=== PATIENT | male | born 1990 | race Caucasian/White ===

== ENCOUNTER 2023-11-21 09:24 | Outpatient (AMB) | payer OTHER, SELFPAY ==
--- NOTE | 2023-11-21 09:17 | MHC.PC.OV ---
Vital Signs 11/21/23 09:41 Height 5 ft 10.87 in Weight 228 lb BMI 31.9 BP 136/72 Blood Pressure Location Rt brachial Position Sitting Respiration 14 Pulse 75 Pulse Source Pulse Oximeter Temp 98.2 F Temp Source Oral Pulse Oximetry (%) 95 Oxygen Delivery Method Room Air Intake Visit Reasons: Establish care Intake Note: New patient visit. Cardiology referral. Equity Research Analyst Required: No Allergies No Known Allergies Allergy (Verified 11/21/23 09:37) Medication List - Last Reconciled 11/21/23 by Stefany Lacey MD armodafinil 150 mg PO DAILY Tobacco use date assessed: 11/21/23 Dental Screening Dental Screen Date: 11/21/23 Did you have a dental visit in the last 12 months?: Yes Did you have a dental problem in the last 6 months where you did not have access to dental care?: No Was dental information given to patient?: Patient has dentist HPI HPI Comments History of Present Illness Details The patient is a 33 year old male with a past medical history of EDOUARD, bicuspid aortic valve, presenting to [facility]. Transferring from [facility] EDOUARD-On armodafinil. Follows with sleep medicine-pulmonology Dr Cisco Hager. He was having some palpitations with the medication so was switched to sunosi which was not as effective so he restarted the armodafinil. As long as he stays well hydrated he dose not get any palpitations Bicuspid aortic valve-Previously following with cardiology, wants referral. Says he is doing for echocardiogram. ROS CONSTITUTIONAL: Denies weight loss, fever and chills. HEENT: Denies changes in vision and hearing. RESPIRATORY: Denies SOB and cough. CV: Denies palpitations and CP GI: Denies abdominal pain, nausea, vomiting and diarrhea. : Denies dysuria and urinary frequency. MSK: Denies new myalgia and joint pain. SKIN: Denies rash and pruritus. NEUROLOGICAL: Denies headache PSYCHIATRIC: Denies recent changes in mood. PHYSICAL EXAM: GENERAL: Alert and oriented x 3. NAD EYES: EOMI. Anicteric. HENT: Moist mucous membranes. No scleral icterus. No cervical lymphadenopathy. LUNGS: Clear to auscultation bilaterally. CARDIOVASCULAR: Regular rate and rhythm. soft murmur ABDOMEN: Soft, non-tender +bs EXTREMITIES: No edema. Non-tender. SKIN: No rashes or lesions. Warm. NEUROLOGIC: No focal neurological deficits. PSYCHIATRIC: Cooperative. Appropriate mood and affect PFSH Family History (Updated 11/21/23 @ 09:40 by Meghna Doyle CMA) Father Substance use Social History (Updated 11/21/23 @ 09:39 by Meghna Doyle CMA) Housing: House Patient Tobacco Use Status: Never used Tobacco e-Cigarette/Vaping Use: Never Used Second Hand Smoke Exposure: Yes service: No Current occupational status: employed Current occupation: [employer] Current occupational exposures/hazards: Yes (fetanyl) Cognitive needs: No Hearing needs: No Vision needs: No Questionnaire PHQ-9 Over the last 2 weeks, how often have you been bothered by any of the following problems? 1. Little interest or pleasure in doing things: not at all 2. Feeling down, depressed, or hopeless: not at all 3. Trouble falling or staying asleep, or sleeping too much: more than half the days 4. Feeling tired or having little energy: several days 5. Poor appetite or overeating: not at all 6. Feeling bad about yourself - or that you are a failure or have let yourself or your family down: not at all 7. Trouble concentrating on things, such as reading the newspaper or watching television: not at all 8. Moving or speaking so slowly that other people could have noticed. Or the opposite - being so fidgety or restless that you have been moving around a lot more than usual: not at all 9. Thoughts that you would be better off or of hurting yourself in some way: not at all Total score: 3 Depression Screening Interpretation: Negative Depression Screening Done: Yes 35635 - PHQ-9 Billing: Yes Source: Developed by Drs. Felix Bess, Sophia De La Rosa, Carlos Cortez and colleagues, with an educational [place] from [employer]. AUDIT C Alcohol Use Questionnaire (AUDIT-C) 1. How often do you have a drink containing alcohol?: Monthly or less (few times a year) 2. How many drinks containing alcohol do you have on a typical day when you are drinking?: 1 or 2 3. How often do you have six or more drinks on one occasion?: Never Total Score: 1 Physical exam (Primary Care) Vital Signs: Last Vital Signs Temp 98.2 F 11/21/23 09:41 Pulse 75 11/21/23 09:41 Resp 14 11/21/23 09:41 BP 136/72 11/21/23 09:41 Pulse Ox 95 11/21/23 09:41 Oxygen Delivery Method Room Air 11/21/23 09:41 BMI result Body Mass Index 31.9 Depression Screening Interpretation: Negative Assessment and Plan Assessment & Plan (1) Bicuspid aortic valve: Code(s): Q23.1 - Congenital insufficiency of aortic valve Plan: Echo ordered (2) EDOUARD (obstructive sleep apnea): Code(s): G47.33 - Obstructive sleep apnea (adult) (pediatric) Plan: Continue follow up with pulmonary (3) Encounter to establish care: Comment: 33 year old to establish care. past medical, surgical, social and family history reviewed Code(s): Z76.89 - Persons encountering health services in other specified circumstances Orders: Orders CA echo transthoracic complete Today Q23.1 - Congenital insufficiency of aortic valve Referrals Cardiology Referral G47.33 - Obstructive sleep apnea (adult) (pediatric), Q23.1 - Congenital insufficiency of aortic valve Coding Level of Care Code Tele New Pt Level 4 (81268) Complex EM visit Add On G2211 Diagnoses Bicuspid aortic valve Q23.1 EDOUARD (obstructive sleep apnea) G47.33 Encounter to establish care Z76.89
[2023-11-21 09:41] VITALS: BP 136/72; PULSE 75; RESP 14; TEMP 36.8; O2SAT 95; BMI 31.9
== END 2023-11-21 10:00 | disposition home or self-care (01) ==
PROVIDERS: PCP Internal Medicine; Visit Provider Internal Medicine
DX: Q23.1 Congenital insufficiency of aortic valve (principal); G47.33 Obstructive sleep apnea (adult) (pediatric)
CPT/HCPCS: 99204

== ENCOUNTER → 2024-01-10 14:51 | Outpatient (REF) | payer OTHER, SELFPAY ==
--- NOTE | 2024-01-10 14:58 | CA_ITS ---
Transthoracic Echocardiogram Patient (Last, First, Middle): Brennan Aguirre T Gender: Male Date of : 1990 Age: 33 Procedure Date: 01/10/2024 Procedure Type: Transthoracic Echocardiogram Location: OP Height: 180.34 cm Weight: 99.79 kg BSA: 2.20 m2 Heart Rate: 68 bpm BP: 132 / 90 mmHg Machinist Brake: KELLY Referring MD: Stefany Lacey MD Symptoms: Q23.1 - Congenital insufficiency of aortic valve Study Quality: Adequate ECG Rhythm: Sinus Conclusions: - The left ventricular systolic function is normal. The visually estimated ejection fraction is between 55-60%. - Moderately increased right ventricular cavity size. - Aortic valve not well visualized. Obtain additional images to reassess. Findings Left Ventricle Normal left ventricular cavity size. There is mildly increased left ventricular wall thickness. The left ventricular systolic function is normal. The visually estimated ejection fraction is between 55-60%. There is no evidence of regional wall motion abnormalities. Diastolic function is normal for age. Right Ventricle Moderately increased right ventricular cavity size. There is normal right ventricular systolic function. Atria Both atria are normal in size. Aortic Valve The aortic valve was not well visualized. There is no aortic valve stenosis. There is trace (trivial) aortic valve regurgitation. Mitral Valve The mitral valve appears normal. There is trace mitral valve regurgitation. There is no mitral valve stenosis. Pulmonic Valve The pulmonic valve is likely normal. Tricuspid Valve Normal tricuspid valve structure. There is trace tricuspid valve regurgitation. There is no evidence of pulmonary hypertension. Great Vessels The asc aorta is normal in size. Venous The inferior vena cava is normal in size and collapses greater than 50% with inspiration. Pericardium/Pleural There is no evidence of pericardial effusion. Prior Study Comparison No prior study available for comparison. Measurements 2D Linear Measurements IVSd: 1.22 0.6-0.9/0.6-1.0 cm LVIDd: 5.15 3.9-5.3/4.2-5.9 cm LVIDd Index: 2.34 2.4-3.2/2.2-3.1 cm/m2 LVIDs: 3.65 2.0-3.6 cm LVPWd: 1.35 0.7-1.1 cm LA Diam: 3.40 2.7-3.8/3.0-4.0 cm LAIDs Index: 1.55 1.5-2.3 cm/m2 LV Mass: 336.45 67-162/88-224 g LV Mass Index: 152.93 43-95/49-115 g/m2 LVOT Diam: 2.70 3.0+(-)1.3 cm 2D Systolic Function EF 4C: 56.00 >55% EF 2C: 61.50 >55% EF BiP: 60.10 >55% Mitral Valve MV Pk E: 0.82 MV PK A: 0.40 MV Decel Time: 241.00 E/A: 2.10 E'Lateral: 14.40 E'Medial: 9.90 E/E' Med: 8.30 E/E' Lat: 5.70 PHT: 70.00 MVA PHT: 3.14 Decel [place]: 3.42 Aortic Valve AoV Pk Silvio: 1.27 AoV Mn Silvio: 0.96 AoV VTI: 0.25 AoV Pk Grad: 6.00 Aov Mn Grad: 4.00 GAVIN Cont.VTI: 3.90 LVOT LVOT Pk Silvio: 0.82 LVOT Mn Silvio: 0.57 LVOT VTI: 0.17 LVOT Pk Grad: 3.00 LVOT Mn Grad: 2.00 LVOT Diam: 2.70 LVOT Area: 5.73 Diastolic Function MV Pk E: 0.82 MV Pk A: 0.40 E/A: 2.10 E'Medial: 9.90 E/E' Med: 8.30 E' Laterial: 14.40 E/E' Lat: 5.70 Right Ventricle TAPSE (mm): 21.90 TVS' Silvio: 8.49 Tricuspid Valve TR Pk Silvio: 1.98 TR Pk Grad: 16.00 RA Press: 3.00 RVSP: 19.00 Great Vessels Aorta Sinus of Valsalva: 3.50 2.0-3.5 cm Ao Asc: 3.50 2.1-3.4 cm Pulmonary Valve PV Pk Silvio: 0.69 Peak PV Grad: 2.00 Updated in Other Vendor System with Status of Final Alvin Ellis MD electronically signed on 01/12/2024 11:48:52 AM with status of Final
--- NOTE | 2024-01-12 08:56 | CA_ITS ---
Transthoracic Echocardiogram Amended Patient (Last, First, Middle): Brennan Aguirre T Gender: Male Date of : 1990 Age: 33 Procedure Date: 01/12/2024 Procedure Type: Transthoracic Echocardiogram Location: OP Height: 180.34 cm Weight: 99.79 kg BSA: 2.20 m2 Heart Rate: 70 bpm BP: 132 / 85 mmHg Manufacturing Coordinator: KELLY Referring MD: Stefany Lacey MD Symptoms: Q23.1 - Congenital insufficiency of aortic valve Study Quality: Adequate, Limited by order ECG Rhythm: Sinus Findings Aortic Valve There is a bicuspid aortic valve. There is no aortic valve stenosis. There is trace (trivial) aortic valve regurgitation. Fusion of left and right cusps. Prior Study Comparison No significant change compared to prior study dated: 01/10/2024. (see report from 01/09 for full study) Measurements 2D Linear Measurements LVOT Diam: 2.40 3.0+(-)1.3 cm Aortic Valve AoV Pk Silvio: 1.34 AoV Mn Silvio: 0.96 AoV VTI: 0.26 AoV Pk Grad: 7.00 Aov Mn Grad: 4.00 GAVIN Cont.VTI: 3.13 LVOT LVOT Pk Silvio: 0.86 LVOT Mn Silvio: 0.62 LVOT VTI: 0.18 LVOT Pk Grad: 3.00 LVOT Mn Grad: 2.00 LVOT Diam: 2.40 LVOT Area: 4.52 Updated in Other Vendor System with Status of Final Alvin Ellis MD electronically signed on 01/12/2024 11:42:54 AM with status of Final
== END ==
LOC: HO.CARD 14:51
PROVIDERS: Visit Provider Internal Medicine
DX: Q23.1 Congenital insufficiency of aortic valve (principal)
CPT/HCPCS: 93306; 93308

== ENCOUNTER → 2024-01-10 14:58 | Outpatient (BNV) | payer OTHER, SELFPAY | PROVIDERS: Visit Provider Internal Medicine | DX: Q23.1 Congenital insufficiency of aortic valve (principal) | CPT/HCPCS: 93303; 93320; 93325 ==

== ENCOUNTER → 2024-01-12 08:52 | Outpatient (REF) | payer OTHER, SELFPAY | LOC: HO.CARD 08:52 | PROVIDERS: Visit Provider Internal Medicine | DX: Z13.89 Encounter for screening for other disorder (principal) ==

== ENCOUNTER → 2024-01-12 08:56 | Outpatient (BNV) | payer OTHER, SELFPAY | PROVIDERS: Visit Provider Internal Medicine | DX: Q23.1 Congenital insufficiency of aortic valve (principal) | CPT/HCPCS: 93304 ==

== ENCOUNTER 2024-01-27 09:07 | Outpatient (AMB) | payer OTHER, SELFPAY ==
--- NOTE | 2024-01-27 09:12 | A.OFFPC_ITS ---
Intake Visit Reasons: F/U echocardiogram-Change to telehealth Requested Allergies No Known Allergies Allergy (Verified 11/21/23 09:37) Tobacco use date assessed: 11/21/23 Dental Screening Dental Screen Date: 11/21/23 HPI HPI Comments History of Present Illness Details The patient is a 33 year old male with a past medical history of EDOUARD, bicuspid aortic valve, presenting for follow up EDOUARD-On armodafinil. Follows with sleep medicine-pulmonology Dr Cisco Hager. He was having some palpitations with the medication so was switched to sunosi which was not as effective so he restarted the armodafinil. As long as he stays well hydrated he dose not get any palpitations Bicuspid aortic valve-Previously following with cardiology. Echocardiogram was ordered at his last visit and reviewed today-there was no significant interval changes, no significant valve dysfunction. ROS see HPI PHYSICAL EXAM: Telehealth [facility] Family History (Updated 11/21/23 @ 09:40 by Meghna Doyle CMA) Father Substance use Social History (Updated 11/21/23 @ 09:39 by Meghna Doyle CMA) Housing: House Patient Tobacco Use Status: Never used Tobacco e-Cigarette/Vaping Use: Never Used Second Hand Smoke Exposure: Yes service: No Current occupational status: employed Current occupation: [employer] Current occupational exposures/hazards: Yes (fetanyl) Cognitive needs: No Hearing needs: No Vision needs: No Physical exam (Primary Care) Tobacco/Smoking Status: Tobacco use Status Tobacco use date assessed 11/21/23 01/27/24 09:12 Patient Tobacco Use Status Never used Tobacco 01/27/24 09:12 e-Cigarette/Vaping Use Never Used 01/27/24 09:12 Telehealth Telehealth Telehealth Platform: Telephone Location of provider rendering services: practice address Location of patient: address on file Patient Identification confirmed using: Name, : Yes Telehealth method: voice only Patient verbally consented to treatment: Yes Patient verbally consented to billing insurance company: Yes Patient informed of any privacy concerns related to visit: Yes Minutes spent on Phone/Video with Pt.: 12 Assessment and Plan Assessment & Plan (1) Bicuspid aortic valve: Code(s): Q23.1 - Congenital insufficiency of aortic valve Plan: Echocardiogram reviewed with patient. Questions answered. Follow up echo 3-5 years. Coding Level of Care Code Tele Est Pt Level 2 (35593) Diagnoses Bicuspid aortic valve Q23.1
== END 2024-01-27 09:27 | disposition home or self-care (01) ==
LOC: HO.HMGFM 09:07
PROVIDERS: PCP Internal Medicine; Visit Provider Internal Medicine
DX: Q23.1 Congenital insufficiency of aortic valve (principal)
CPT/HCPCS: 99442

== ENCOUNTER 2024-10-18 12:35 | Outpatient (AMB) | payer OTHER, SELFPAY ==
--- OUTSIDE RECORDS SUMMARY | 2024-10-18 12:38 | XMS_ITS | Clinical Summary ---
Author Organization [facility] Address [address] [place] [address] Care Team Providers Care Bilingual Middle School Teacher Name Role Phone Pcp, No MD Primary Care Provider Unavailabl e Allergies Active Allergy Reactions Criticality Noted Date Comments Mold 06/09/2020 Medications No known medications Social History Tobacco Use Types Packs/Day Years Used Date Smoking Tobacco: Never Smokeless Tobacco: Never Alcohol Use Standard Drinks/Week Comments Never 0 (1 standard drink = 0.6 oz pur e alcohol) Sex and Gender Information Value Date Recorded Sex Assigned at Not on file Legal Sex Male 11:14 AM EST Gender Identity Not on file Sexual Orientation Not on file Last Filed Vital Signs Vital Sign Reading Time Taken Comments Blood Pressure 159/75 07/14/2020 4:11 PM EST Pulse 87 07/14/2020 4:40 PM EST Temperature 36.2 ??C (97.1 ??F) 08/18/2021 4:17 PM ED T Respiratory Rate 16 07/14/2020 4:11 PM EST Oxygen Saturation 95% 07/14/2020 4:40 PM EST Inhaled Oxygen Concentration - - Weight 95.3 kg (210 lb) 10/30/2020 8:24 AM EDT Height 180.3 cm (5' 11 ) 10/30/2020 8:24 AM EDT Body Mass Index 29.29 10/30/2020 8:24 AM EDT Plan of Treatment Health Maintenance Due Date Last Done Comments HIV Screening 1990 DTaP,Tdap,and Td Vaccines (1 - Tdap) 2009 Hepatitis B Vaccines (1 of 3 - 19+ 3-dose series) 2010 COVID-19 Vaccine (2023-2 5 season) 2024 Influenza Vaccine (Season Ended) 2025 Zoster Vaccines (1 of 2) 2041 HPV Vaccines Aged Out No longer eligi ble based on patient's age to complete this topic Hepatitis A Vaccines Aged Out No long er eligible based on patient's age to complete this topic MMR Vaccines Aged Out No longer eligi ble based on patient's age to complete this topic Meningococcal Vaccine Aged Out No frankie ania eligible based on patient's age to complete this topic Pneumococcal Vaccine: Pediat rics (0 to 5 Years) and At-Risk Patients (6 to 49 Years) Aged Out No longer eligible b ased on patient's age to complete this topic Medical Devices Implanted Type Area Air Dispatcher Device Identifier Shelf Expiration Date Model / Serial / Lot 18cm X 100mm Fascia Violeta, Large, Soft Tissue, Frozen - [id number] Implanted:Qty: 1 on 06/09/2020 by Adrian Eugene MD PhD at [facility] Soft Tissue Right: Chest [employer] 07/01/2024 [id number] / / [id number] 12mm Bicepsbutton - [id number] Implanted:Qty: 2 on 06/09/2020 by Adrian Eugene MD PhD at [facility] Surgical Fixation Device Right: Chest [employer] 01/27/2025 AR-2261 / / [id number] 12mm Bicepsbutton - [id number] Implanted:Qty: 1 on 06/09/2020 by Adrian Eugene MD PhD at [facility] Surgical Fixation Device Right: Chest [employer] 12/27/2024 AR-2261 / / [id number] 12mm Bicepsbutton - [id number] Implanted:Qty: 1 on 07/14/2020 by Adrian Eugene MD PhD at [facility] Surgical Fixation Device [employer] 01/27/2025 AR-2261 / / [id number] 12mm Bicepsbutton - [id number] Implanted:Qty: 2 on 07/14/2020 by Adrian Eugene MD PhD at [facility] Surgical Fixation Device [employer] 02/26/2025 AR-2261 / / [id number] Insurance [facility] Address: [address] [place] [address] Advance Directives For more information, please contact: [phone] Documents on File Type Date Recorded Patient Fish Drier Expl anation Advance Directives 07/16/2020 10:31 AM Care Teams Bilingual Middle School Teacher Relationship Specialty Start Date End Date Lyudmila Garcia MD [address] [id number] PCP - General Internal Medicine 06/04/20
--- OUTSIDE RECORDS SUMMARY | 2024-10-18 12:38 | XMS_ITS | Clinical Summary ---
Author Organization [facility] Address [address] [place] [address] Care Team Providers Care Chemical Process Analyst Name Role Phone Francesco Mensah MD Primary Care Provider Allergies No known active allergies Medications Medication Sig Dispensed Refills Start Date End Date Status Armodafinil 150 MG tablet TAKE 1 TABLET BY MOUTH EVERY DAY 30 tablet 2 04/18/2023 Active solriamfetol (Sunosi) 75 MG tablet Take 1 tablet (75 mg total) by mouth daily. 30 tablet 3 11/09/2023 Active Active Problems Problem Noted Date Diagnosed Date Daytime somnolence 01/19/2023 Chest pain 03/11/2022 Allergic rhinitis due to pollen 09/04/2020 Bronchitis 09/04/2020 Otalgia 09/04/2020 Cough 09/04/2020 Sore throat 09/04/2020 Social History Tobacco Use Types Packs/Day Years Used Date Smoking Tobacco: Never Passive Smoke Exposure: Never Smokeless Tobacco: Never Tobacco Cessation:Counseling Given: Yes Alcohol Use Standard Drinks/Week Comments Yes 0 (1 standard drink = 0.6 oz pur e alcohol) socially Sex and Gender Information Value Date Recorded Sex Assigned at Male 05/22/2020 2:49 PM EST Gender Identity Male 05/22/2020 2:49 PM EST Sexual Orientation Not on file Job Start Date Occupation Industry Not on file Not on file Not on file Last Filed Vital Signs Vital Sign Reading Time Taken Comments Blood Pressure 124/72 02/23/2023 12:41 PM EDT Pulse 108 02/23/2023 12:41 PM EDT Temperature 36.4 ??C (97.5 ??F) 03/12/2022 8:09 AM ED T Respiratory Rate 16 02/23/2023 12:41 PM EDT Oxygen Saturation 98% 02/23/2023 12:41 PM EDT Inhaled Oxygen Concentration - - Weight 97.5 kg (215 lb) 02/23/2023 12:41 PM EDT Height 180.3 cm (5' 11 ) 02/23/2023 12:41 PM EDT Body Mass Index 29.99 02/23/2023 12:41 PM EDT Plan of Treatment Health Maintenance Due Date Last Done Comments Hepatitis B Vaccines (1 of 3 - 3-dose series) 1990 Hepatitis C Screening 1990 COVID-19 Vaccine (#1) 01/01/1992 Depression Screening 2003 Preventative Health Evaluation 2009 BMI Counseling 08/25/2023 08/24/2022 Influenza Vaccine (#1) 2024 DTap / Tdap / Td (2 - Td or Tdap) 02/21/2033 023 Pneumococcal Vaccine Aged Out No long er eligible based on patient's age to complete this topic RSV Ped < 20 months Aged Out No longe r eligible based on patient's age to complete this topic Advance Directives For more information, please contact: [phone] Latest Code Status on File Code Status Date Activated Date Inactivated Comments Full Code 03/11/2022 4:40 PM 03/12/2022 8:27 PM Thi s code status was ascertained in the following way: TBD . Care Teams Chemical Process Analyst Relationship Specialty Start Date End Date Francesco Mensah MD [address] [place] [address] PCP - General Cardiovascular Disease 03/11/22
--- OUTSIDE RECORDS SUMMARY | 2024-10-18 12:38 | XMS_ITS | Clinical Summary ---
Author Organization [facility] Address [address] [place] [id number] Care Team Providers Care Shift Stacker Name Role Phone Unavailable Primary Care Provider Unavailabl e Immunizations Immunization Administration Dates Next Due Tdap 02/21/2023 Social History Tobacco Use Types Packs/Day Years Used Date Smoking Tobacco: Never Assessed Comments Unknown Sex and Gender Information Value Date Recorded Sex Assigned at Choose not to disclose 9:58 AM EDT Legal Sex Male 12:25 PM EDT Gender Identity Male 02/21/2023 9:58 AM EDT Sexual Orientation Choose not to disclose 2022 9:58 AM EDT Plan of Treatment Health Maintenance Due Date Last Done Comments Hepatitis C Virus Screening 1990 HIV Screening 2004 Hepatitis B Vaccines (1 of 3 - 19+ 3-dose series) 2010 Pap Smear (Ages 21-65) 2012 COVID-19 Vaccine ( - season) 2024 Influenza Vaccine 12/28/2024 03/08/2008, , 03/23/2006, Additional history exists DTaP/Tdap/Td Vaccines (2 - Td or Tdap) 02/21/2033 02/21/2023 HPV Vaccines Aged Out No longer eligi ble based on patient's age to complete this topic Pneumococcal Vaccine: Pediatric (0-5 Years) and At-Risk Patients (6 to 49 Years) Aged Out No longer eligible based on patient's age to complete this topic Insurance [facility]
--- OUTSIDE RECORDS SUMMARY | 2024-10-18 12:38 | XMS_ITS ---
Author Name [facility] Organization Unknown Problems Problem Status Onset Date Problem Type Date of Resoluti on Source Vaccine for diphtheria-tetanus active EncounterDiagnosisAct CCT Immunizations Vaccine Date Source Lot Number Status [id number] Encounters Encounter Type Encounter Reason Primary Diagnosis Location Date Ambulatory [facility] 02/21[facility]2023 Ambulatory Strain of muscle and tendon of front wall of thorax, subsequent encounter [facility] 08/18/2021 Ambulatory Strain of muscle and tendon of front wall of thorax, subsequent encounter [facility] 07/14/2021 Ambulatory Strain of muscle and tendon of front wall of thorax, subsequent encounter [facility] 07/14/2021 Ambulatory Strain of muscle and tendon of front wall of thorax, subsequent encounter [facility] 07/14/2021 Care Team Organization Name Specialty Phone Email Start Date End [employer] te [employer] 09/23/2023 [facility] Louise Prasad Primary [facility] 02/21/2023 02/24/20 [facility] ROSA ISELA RAE Primary Care 02/21/2023 02/24/2024 [facility] Teddy Rae Primary Care 02/21/2023 [facility] PCP,No Primary Care 08/18/2021 [facility] NO PCP Primary Care 07/14/2021
--- OUTSIDE RECORDS SUMMARY | 2024-10-18 12:38 | XMS_ITS | Encounter Summary ---
Author Organization [facility] Address [address] [place] [address] Care Team Providers Care Champagne Maker Name Role Phone Louise Prasad APRN Primary Care Provider [phone] Encounter Details Date Type Department Care Team (Late st Contact Info) Description 02/23/2023 Scanned Document [facility] Department of Pediatrics [address] [id number] Louise [facility]asad APRN [facility] [address] [place] [address] Social History Tobacco Use Types Packs/Day Years Used Date Smoking Tobacco: Never Assessed Comments Unknown Sex and Gender Information Value Date Recorded Sex Assigned at Choose not to disclose 9:58 AM EDT Legal Sex Male 12:25 PM EDT Gender Identity Male 02/21/2023 9:58 AM EDT Sexual Orientation Choose not to disclose 2022 9:58 AM EDT documented as of this encounter Plan of Treatment Not on file documented as of this encounter Visit Diagnoses Not on filedocumented in this encounter Care Teams Champagne Maker Relationship Specialty Start Date End Date Louise Prasad APRN PCP - General Internal Medicine 02/21/23 10/02/23 documented as of this encounter
--- OUTSIDE RECORDS SUMMARY | 2024-10-18 12:38 | XMS_ITS | Clinical Summary ---
Author Organization [facility] Address [address] [place] [address] Phone Care Team Providers Care Waterway Traffic Checker Name Role Phone Francesco Mensah MD Primary Care Provider Allergies No known active allergies Medications armodafiniL (NUVIGIL) 150 mg tablet Take 1 tablet (150 mg total) by mouth 1 (one) time each day. Max Daily Amount: 150 mg 04/18/2023 Active Sunosi 75 mg tablet TAKE 1 TABLET BY MOUTH EVERY DAY 30 tablet 3 04/18/2024 Active Active Problems Problem Noted Date Diagnosed Date Daytime somnolence 01/19/2023 Chest pain 03/11/2022 Allergic rhinitis due to pollen 09/04/2020 Bronchitis 09/04/2020 Cough 09/04/2020 Otalgia 09/04/2020 Sore throat 09/04/2020 Medical History Medical History Date Comments History of repair of anterio r cruciate ligament DX:History of repair of ante rior cruciate ligament History of shoulder surgery DX:H istory of shoulder surgery Social History Tobacco Use Types Packs/Day Years Used Date Smoking Tobacco: Never Smokeless Tobacco: Never Alcohol Use Standard Drinks/Week Comments Yes 0 (1 standard drink = 0.6 oz pur e alcohol) Sex and Gender Information Value Date Recorded Sex Assigned at Not on file Legal Sex Male 3:43 AM EST Gender Identity Not on file Sexual Orientation Not on file Obstetrics History Last Filed Vital Signs Vital Sign Reading Time Taken Comments Blood Pressure 124/72 02/23/2023 12:41 PM EDT Pulse 108 02/23/2023 12:41 PM EDT Temperature - - Respiratory Rate - - Oxygen Saturation - - Inhaled Oxygen Concentration - - Weight 97.5 kg (215 lb) 02/23/2023 12:41 PM EDT Height 180.3 cm (5' 11 ) 02/23/2023 12:41 PM EDT Body Mass Index 29.99 02/23/2023 12:41 PM EDT Plan of Treatment Health Maintenance Due Date Last Done Comments DTaP,Tdap,and Td Vaccines (1 - Tdap) 2010 Hepatitis B Vaccines (1 of 3 - 19+ 3-dose series) 2010 Depression Screening 05/02/2022 HIV Screening 05/02/2022 Hepatitis C Screening 05/02/2022 Social Influencers of Health Screening 05/02/2022 COVID-19 Vaccine (1 - 2023-2 5 season) 2024 Influenza Vaccine (Season Ended) 2025 HIB Vaccines Aged Out No longer eligi ble based on patient's age to complete this topic HPV Vaccines Aged Out No longer eligi ble based on patient's age to complete this topic Hepatitis A Vaccines Aged Out No long er eligible based on patient's age to complete this topic IPV Vaccines Aged Out No longer eligi ble based on patient's age to complete this topic MMR Vaccines Aged Out No longer eligi ble based on patient's age to complete this topic Meningococcal ACWY Vaccine Aged Out N o longer eligible based on patient's age to complete this topic Meningococcal B Vaccine Aged Out No l onger eligible based on patient's age to complete this topic Pneumococcal Vaccine: Pediat rics (0 to 5 Years) and At-Risk Patients (6 to 64 Years) Aged Out No longer eligible b ased on patient's age to complete this topic RSV Immunization Patients Un leland 20 months Aged Out No longer eligible b ased on patient's age to complete this topic Varicella Vaccines Aged Out No longer eligible based on patient's age to complete this topic Care Teams Waterway Traffic Checker Relationship Specialty Start Date End Date Francesco Mensah MD [address] [facility] [address] [place] [address] PCP - General 03/11/22
--- OUTSIDE RECORDS SUMMARY | 2024-10-18 12:38 | XMS_ITS | Encounter Summary ---
Author Organization [facility] Address [address] [place] [address] Care Team Providers Care Fur Dressing Supervisor Name Role Phone Louise Prasad APRN Primary Care Provider [phone] Encounter Details Date Type Department Care Team (Late st Contact Info) Description 02/21/2023 Scanned Document Gustavo Alarcon Department of Internal Medicine [address] [place] [id number] Nika Lazaro APRN [address] [place] [address] Social History Tobacco Use Types Packs/Day Years [...] on filedocumented in this encounter Care Teams Fur Dressing Supervisor Relationship Specialty Start Date End Date Louise Prasad APRN PCP - General Internal Medicine 02/21/23 10/02/23 documented as of this encounter
--- OUTSIDE RECORDS SUMMARY | 2024-10-18 12:38 | XMS_ITS | Clinical Summary ---
Author Organization [facility] Address [address] [place] [address] Care Team Providers Care Electric Crane Operator Name Role Phone Gaby Tong Primary Care Provider Unavailabl e Medications Armodafinil (NUVIGIL) 150 MG tablet TAKE 1 TABLET BY MOUTH EVERY DAY 30 0 01/18/2023 Active Armodafinil (NUVIGIL) 150 MG tablet TAKE 1 TABLET BY MOUTH EVERY DAY 30 0 01/18/2023 Active Armodafinil (NUVIGIL) 150 MG tablet TAKE 1 TABLET BY MOUTH EVERY DAY 30 0 01/18/2023 Active Solriamfetol HCl (Sunosi) 75 MG Tab 30 0 04/13/2023 Active Solriamfetol HCl (Sunosi) 75 MG Tab 30 0 04/13/2023 Active Solriamfetol HCl (Sunosi) 75 MG Tab 30 0 04/13/2023 Active Active Problems Problem Noted Date Diagnosed Date Abnormal electrocardiogram 03/21/2018 Overview (2023): Impression - [id number]: asymptomatic currently. referral to cardiology, will likely will need echo for further eval. could be r/t athletic lifestyle or hx of congenital heart defect. Congenital heart defect 03/21/2018 Family History Medical History Relation Name Comments Congenital heart dz Father congenit al heart disease : Father Relation Name Status Comments Father Social History Tobacco Use Types Packs/Day Years Used Date Smoking Tobacco: Never Assessed Comments:Smoking Status:No c urrent tobacco use Sex and Gender Information Value Date Recorded Sex Assigned at Not on file Legal Sex Male 9:51 PM EDT Gender Identity Not on file Sexual Orientation Not on file Last Filed Vital Signs Vital Sign Reading Time Taken Comments Blood Pressure 98/60 03/21/2018 2:22 PM EDT Pulse 64 03/21/2018 2:22 PM EDT Temperature 36.8 ??C (98.2 ??F) 03/21/2018 2:22 PM ED T Respiratory Rate 16 03/21/2018 2:22 PM EDT Oxygen Saturation 99% 03/10/2018 6:12 PM EDT Inhaled Oxygen Concentration - - Weight 97.1 kg (214 lb) 03/21/2018 2:22 PM EDT Height 177.8 cm (5' 10 ) 03/21/2018 2:22 PM EDT Body Mass Index 30.71 03/21/2018 2:22 PM EDT Plan of Treatment Health Maintenance Due Date Last Done Comments Hepatitis C Screening 1991 DTaP/Tdap/Td (1 - Tdap) 2009 Hep B (1 of 3 - 19+ 3-dose series) 2010 COVID-19 Vaccine ( - 2023-2 5 season) 2024 Influenza (#1) 2024 Zoster (Shingrix) (1 of 2) 2041 HPV Vaccine Aged Out No longer eligi ble based on patient's age to complete this topic Hep A Aged Out No longer eligi ble based on patient's age to complete this topic Hib Aged Out No longer eligi ble based on patient's age to complete this topic Meningococcal ACWY Aged Out No longer eligible based on patient's age to complete this topic Pneumococcal Aged Out No longer eligi ble based on patient's age to complete this topic Care Teams Electric Crane Operator Relationship Specialty Start Date End Date Gaby Tong PCP - General 01/03/23
--- NOTE | 2024-10-18 12:56 | A.OFFPC_ITS ---
Vital Signs 10/18/24 13:00 10/18/24 13:16 10/18/24 13:17 10/18/24 13:18 Height 5 ft 10.87 in Weight 229 lb 8 oz BMI 32.1 BP 138/81 144/72 H 150/75 H 151/77 H Blood Pressure Location Lt brachial Lt brachial Lt brachial Lt brachial Position Sitting Supine Sitting Standing Respiration 14 Pulse 80 76 79 87 Pulse Source Pulse Oximeter Pulse Oximeter Pulse Oximeter Pulse Oximeter Pulse Oximetry (%) 97 Oxygen Delivery Method Room Air Intake Visit Reasons: Heart condition Intake Note: Has a bicuspid aortic valve issue. Elevated bp. Lightheaded for about 6 months. Event Specialist Product Demonstrator Required: No Allergies No Known Allergies Allergy (Verified 10/18/24 12:57) Medication List - Last Reconciled 10/18/24 by Claire Jung PA-C armodafinil 150 mg PO DAILY Tobacco use date assessed: 11/21/23 Dental Screening Dental Screen Date: 11/21/23 HPI Heart condition HPI Details Patient is a 34-year-old male with a significant past medical history of bipolar custody aortic valve, obstructive sleep apnea presenting today with an acute problem visit. He states that for the last 4 or 5 months he has felt lightheaded/off balance. He states it happens multiple times a week if not every day. He states it is very short lasting but when he is doing some of the he just feels a little off balance. . He is trying to correlated to something such as food or blood pressure. He states that for the last 6 months he has noticed that his blood pressure has been elevated consistently. When he was seen here last year it was also 138/72. He states that it has been elevated with a systolic around 130-160 and diastolic from 70 to 90. He states when he is feeling lightheaded he does not have any chest pain, shortness on breath or palpitations. No diaphoresis or nausea. No headaches or vision changes. No numbness, tingling or weakness. No sinus pain or pressure, sore throat, ear pain or congestion. The dizziness makes him just stop whatever he is doing. It does not seem to matter if he is moving or sitting there. He has not checked his blood sugars but has never had an issue with his blood sugar. He is very consistent with his CPAP machine. He is concerned about his heart given that he has a bicuspid aortic valve. He does have a family history of hypertension. He states years ago he was told that he had protein in his urine as well and they thought it was just related to his diet. He never saw a mitochondrial disorders counselor. PFSH Family History (Updated 11/21/23 @ 09:40 by Meghna Doyle CMA) Father Substance use Social History (Updated 11/21/23 @ 09:39 by Meghna Doyle CMA) Housing: House Patient Tobacco Use Status: Never used Tobacco e-Cigarette/Vaping Use: Never Used Second Hand Smoke Exposure: Yes service: No Current occupational status: employed Current occupation: [employer] Current occupational exposures/hazards: Yes (fetanyl) Cognitive needs: No Hearing needs: No Vision needs: No Questionnaire PHQ-9 Over the last 2 weeks, how often have you been bothered by any of the following problems? 1. Little interest or pleasure in doing things: several days 2. Feeling down, depressed, or hopeless: not at all 3. Trouble falling or staying asleep, or sleeping too much: not at all 4. Feeling tired or having little energy: several days 5. Poor appetite or overeating: not at all 6. Feeling bad about yourself - or that you are a failure or have let yourself or your family down: not at all 7. Trouble concentrating on things, such as reading the newspaper or watching television: not at all 8. Moving or speaking so slowly that other people could have noticed. Or the opposite - being so fidgety or restless that you have been moving around a lot more than usual: not at all 9. Thoughts that you would be better off or of hurting yourself in some way: not at all Total score: 2 Depression Screening Interpretation: Negative Depression Screening Done: Yes 99260 - PHQ-9 Billing: Yes Source: Developed by Drs. Felix Bess, Sophia De La Rosa, Carlos Cortez and colleagues, with an educational india from [employer]. Thrive Questionnaire Date Thrive assessed: 10/18/24 I am a: Patient What is your living situation today?: I have a steady place to live Within the past 12 months, did the food you bought not last and you didn't have the money to get more?: Sometimes True Within the past 12 months, did you worry whether your food would run out before you got money to buy more?: Sometimes True Do you have trouble paying for medicines?: No Do you have trouble getting transportation to medical appointments?: No Do you have trouble paying your heating and electricity bill?: No Do you have trouble taking care of your child, family member or friend?: No Do you have trouble with day-to-day activities such as bathing, preparing meals, shopping, managing finances, etc.?: No Are you currently unemployed and looking for a job?: No Are you interested in more education?: Yes Please select the resources that you would like help with: None Currently or been in a relationship where the following occur: No concerns reported THRIVE Score: 2 AUDIT C Alcohol Use Questionnaire (AUDIT-C) 1. How often do you have a drink containing alcohol?: Never 2. How many drinks containing alcohol do you have on a typical day when you are drinking?: 1 or 2 3. How often do you have six or more drinks on one occasion?: Never Total Score: 0 JAZMYN-7 AMB Questionnaire JAZMYN-7 Feeling nervous, anxious, or on edge: 0 = Not at all Not being able to stop or control worryin = Not at all Worrying too much about different things: 1 = Several days Trouble relaxin = Several days Being so restless that it is hard to sit still: 0 = Not at all Becoming easily annoyed or irritable: 0 = Not at all Feeling afraid as if something awful might happen: 0 = Not at all Total JAZMYN-7 score (0-4 normal; 5-9 mild; 10-14 moderate; 15-21 severe): 2 Source: Developed by Drs. Felix Bess, Sophia De La Rosa, Carlos Cortez and colleagues, with an educational india from [employer]. JAZMYN-7 Assessment Billing JAZMYN-7 Assessment Tool: JAZMYN-7 Assessment 13091 Physical exam (Primary Care) Vital Signs: Last Vital Signs Pulse 80 10/18/24 13:00 Resp 14 10/18/24 13:00 BP 138/81 10/18/24 13:00 Pulse Ox 97 10/18/24 13:00 Oxygen Delivery Method Room Air 10/18/24 13:00 BMI result Body Mass Index 32.1 Tobacco/Smoking Status: Tobacco use Status Tobacco use date assessed 11/21/23 10/18/24 12:57 Patient Tobacco Use Status Never used Tobacco 10/18/24 12:57 e-Cigarette/Vaping Use Never Used 10/18/24 12:57 PHQ-9: PHQ-9 Score PHQ-9: Total score 2 10/18/24 12:57 Depression Screening Interpretation: Negative Thrive Assessment: Date of Thrive Assessment Date Thrive assessed 10/18/24 10/18/24 12:57 Currently or been in a relationship where the following occur: No concerns reported Const Orientation/consciousness: patient oriented x3 HENMT Ears: hearing grossly normal bilaterally Neck Thyroid: Thyroid normal Lymphatic: no lymphadenopathy noted Resp Auscultation: clear to auscultation bilaterally Cardio Rate: regular rate Rhythm: regular rhythm Heart sounds: S1 normal heart sound present and S2 normal heart sound present GI Inspection: Yes normal to inspection Palpation (GI): Soft to palpation and Other GI palpation findings present (nontender, no cva tenderness) Auscultation: normoactive bowel sounds Rectal Exam - Male: Yes deferred Skin General skin exam: no rashes or lesions noted Neuro General: patient oriented x3, gait normal, no focal motor deficits, CN's II-XI intact bilaterally and deep tendon reflexes 2+ bilaterally Gait exam (Neuro): Normal gait present Motor exam (neuro): 5/5 motor strength present throughout Office Procedures EKG Details: EKG today in the office is normal sinus rhythm at a rate of 75 beats per minute with nonspecific STT wave abnormalities. Possible LVH. EKG interpreted by myself and Dr. Lacey. [id number], Complete Coding Level of Care Code Est Pt Level 4 (26952) Complex EM visit Add On G2211 Diagnoses Dizziness R42 HTN (hypertension) I10 CPT Codes EKG - CPT: 52753-[id number], Complete ([id number]) Additional Codes PHQ-9 - 35319 - PHQ-9 Billing: Yes ([id number]) JAZMYN-7 Assessment Billing - JAZMYN-7 Assessment Tool: JAZMYN-7 Assessment 69897 ([id number]) Assessment & Plan Assessment & Plan (1) Dizziness: Code(s): R42 - Dizziness and giddiness Category: Medical Plan: Orthostatic WNL. EKG reviewed today in office. Holter monitor ordered Labs ordered Patient does appear grossly neurologically intact today. Advised short term follow up (2) HTN (hypertension): Code(s): I10 - Essential (primary) hypertension Category: Medical Plan: We will start amlodipine 5 mg. Discussed risks and benefits adverse effects. Return in 2 weeks to be re-evaluated. Orders: Orders Microalbumin, Random (w Creat) Today I10 - Essential (primary) hypertension, R42 - Dizziness and giddiness Complete Blood Count Auto Diff Today I10 - Essential (primary) hypertension, R42 - Dizziness and giddiness Comprehensive Met. Panel Today I10 - Essential (primary) hypertension, R42 - Dizziness and giddiness Hemoglobin A1c Today I10 - Essential (primary) hypertension, R42 - Dizziness and giddiness, R73.01 - Impaired fasting glucose TSH reflex Free T4 Today I10 - Essential (primary) hypertension, R42 - Dizziness and giddiness Vitamin B12 and Folate Today I10 - Essential (primary) hypertension, R42 - Dizziness and giddiness Magnesium Today I10 - Essential (primary) hypertension, R42 - Dizziness and giddiness ECG holter monitor 24 hour Today I10 - Essential (primary) hypertension, R42 - Dizziness and giddiness Medications: New amlodipine 5 mg PO DAILY 90 tabs 1RF
[2024-10-18 13:00] VITALS: BP 138/81; PULSE 80; RESP 14; O2SAT 97; BMI 32.1
[2024-10-18 13:16] VITALS: BP 144/72; PULSE 76
[2024-10-18 13:17] VITALS: BP 150/75; PULSE 79
[2024-10-18 13:18] VITALS: BP 151/77; PULSE 87
== END 2024-10-18 13:33 | disposition home or self-care (01) ==
LOC: HO.HMCFM 12:36
PROVIDERS: PCP Internal Medicine; Visit Provider Physician Assistant
DX: R42 Dizziness and giddiness (principal); I10 Essential (primary) hypertension

== ENCOUNTER → 2024-10-18 12:35 | Outpatient (BNVA) | payer OTHER, SELFPAY | PROVIDERS: PCP Internal Medicine; Visit Provider Physician Assistant | DX: R42 Dizziness and giddiness (principal); I10 Essential (primary) hypertension; Z13.30 Encounter for screening examination for mental health and behavioral disorders, unspecified | CPT/HCPCS: 93005; 96127 ==

== ENCOUNTER 2024-10-18 13:55 | Outpatient (REF) | payer OTHER, SELFPAY ==
[2024-10-18 17:52] LABS: MANUAL DIFF FLAG NO
[2024-10-18 18:06] LABS: Estimated Average Glucose 100 mg/dL; Hemoglobin A1C 149.4491 umol/L; Hemoglobin A1c % 5.1 % (<6.0)
[2024-10-18 18:13] LABS: Alanine Aminotransferase 62 U/L (0-40); Albumin Level 4.7 g/dL (3.5-5.0); Alkaline Phosphatase 54 U/L (39-117); Anion Gap 14 (12-20); Aspartate Amino Transferase 32 U/L (5-37); Bilirubin Total 0.4 mg/dL (0.0-1.0); Blood Urea Nitrogen 22 mg/dL (9-16); Carbon Dioxide 25 mmol/L (22-29); Chloride 108 mmol/L (96-108); Estimated Glomerular Filt Rate > 60; Glucose Random 88 mg/dL (60-115); Potassium 3.6 mmol/L (3.3-5.1); Sodium 143 mmol/L (135-145); Total Protein 7.3 g/dL (6.5-8.0)
[2024-10-18 18:15] LABS: Basophils Percent Auto 0.3 % (0-2); Eosinophils Absolute Auto 0.1 X10*3/uL (0.0-0.4); Eosinophils Percent Auto 1.7 % (0-4); Hematocrit 49.6 % (42.0-52.0); Hemoglobin 17.2 g/dl (14.0-18.0); Imm Gran Abs Auto 0.02 X10*3/uL (0.00-0.03); Imm Gran Pct Auto 0.3 % (0.0-0.4); Lymphocytes Absolute Auto 1.8 X10*3/uL (1.2-4.9); Lymphocytes Percent Auto 28.5 % (20-40); Mean Corpuscular HGB Conc 34.7 g/dl (31.0-36.0); Mean Corpuscular Hemoglobin 30.6 pg (27.0-33.0); Mean Corpuscular Volume 88.3 fL (80.0-98.0); Mean Platelet Volume 9.6 fL (9.4-12.4); Monocytes Absolute Auto 0.6 X10*3/uL (0.1-1.2); Monocytes Percent Auto 9.1 % (2-11); Neutrophils Absolute Auto 3.8 x10*3/uL (2.0-8.3); Neutrophils Percent Auto 60.1 % (45-73); Platelet Count 219 X10*3/uL (160-400); Red Blood Count 5.62 X10*6/uL (4.60-5.80); Red Cell Distribution Width 13.2 % (11.0-16.0); White Blood Count 6.4 X10*3/uL (4.8-10.8)
[2024-10-18 18:21] LABS: Creatinine Urine 100.98 mg/dL; Microalbumin Urine < 5.0 mg/L
[2024-10-18 18:33] LABS: TSH reflex Free T4 0.84 uIU/mL (0.32-4.0)
[2024-10-18 18:43] LABS: Folate 10.7 ng/mL (> or = 4.0); Vitamin B12 586 pg/mL (200-900)
== END 2024-10-18 13:56 | disposition home or self-care (01) ==
LOC: HO.WFDLDS 13:55
PROVIDERS: Visit Provider Physician Assistant
DX: R73.01 Impaired fasting glucose (principal); I10 Essential (primary) hypertension; R42 Dizziness and giddiness
CPT/HCPCS: 36415; 80053; 82570; 82607; 82746; 83036; 83735; 84443; 85025

== ENCOUNTER 2024-11-06 11:42 | Outpatient (AMB) | payer OTHER, SELFPAY ==
--- NOTE | 2024-11-06 11:45 | A.OFFPC_ITS ---
Vital Signs 11/06/24 11:48 Height 5 ft 10.8 in Weight 224 lb 6 oz BMI 31.5 BP 118/70 Blood Pressure Location Rt brachial Position Sitting Pulse 88 Pulse Source Pulse Oximeter Temp 97.9 F Temp Source Temporal Artery Scan Pulse Oximetry (%) 97 Oxygen Delivery Method Room Air Intake Visit Reasons: ideally w/ pcp but either way, bp check and labs Intake Note: Brennan presents in the office today for a blood pressure check and lab review. Allergies No Known Allergies Allergy (Verified 11/06/24 11:47) Tobacco use date assessed: 11/06/24 Dental Screening Dental Screen Date: 11/06/24 Did you have a dental visit in the last 12 months?: No Did you have a dental problem in the last 6 months where you did not have access to dental care?: No Was dental information given to patient?: Patient has dentist HPI HPI Comments History of Present Illness Details The patient is a 33 year old male with a past medical history of EDOUARD, bicuspid aortic valve, presenting for follow up Seen by colleague He states that for the last 4 or 5 months he has felt lightheaded/off balance. He states it happens multiple times a week if not every day. He states it is very short lasting but when he is doing some of the he just feels a little off balance. . He is trying to correlated to something such as food or blood pressure. He states that for the last 6 months he has noticed that his blood pressure has been elevated consistently. When he was seen here last year it was also 138/72. He states that it has been elevated with a systolic around 130-160 and diastolic from 70 to 90. He states when he is feeling lightheaded he does not have any chest pain, shortness on breath or palpitations. No diaphoresis or nausea. No headaches or vision changes. No numbness, tingling or weakness. No sinus pain or pressure, sore throat, ear pain or congestion. The dizziness makes him just stop whatever he is doing. It does not seem to matter if he is moving or sitting there. He has not checked his blood sugars but has never had an issue with his blood sugar. He was started on amlodipine. BP is better controlled. He still has some episodes of lightheadedness, off balance feeling. This is generally when he gets busy/called at work. He did not follow through with [employer] assistant manager but will call to schedule. His labs showed elevated lfts and liver testing was ordered but he wants to improve his diet and do it without exercising for a few days prior to consider this testing. EDOUARD-On armodafinil. Follows with sleep medicine-pulmonology Dr Cisco Hager. He was having some palpitations with the medication so was switched to sunosi which was not as effective so he restarted the armodafinil. As long as he stays well hydrated he dose not get any palpitations Bicuspid aortic valve-Previously following with cardiology. Echocardiogram was ordered at his last visit and reviewed today-there was no significant interval changes, no significant valve dysfunction. ROS see HPI PHYSICAL EXAM: GENERAL: Alert and oriented x 3. NAD EYES: EOMI. Anicteric. HENT: Moist mucous membranes. No scleral icterus. No cervical lymphadenopathy. LUNGS: Clear to auscultation bilaterally. CARDIOVASCULAR: Regular rate and rhythm. No murmur. No JVD. ABDOMEN: Soft, non-tender +bs EXTREMITIES: No edema. Non-tender. SKIN: No rashes or lesions. Warm. NEUROLOGIC: No focal neurological deficits. CN II-XII grossly intact PSYCHIATRIC: Cooperative. Appropriate mood and affect PFSH Family History Father Substance use Social History Housing: House Alcohol intake: never Patient Tobacco Use Status: Never used Tobacco e-Cigarette/Vaping Use: Never Used Second Hand Smoke Exposure: Yes service: No Current occupational status: employed Current occupation: [employer] Current occupational exposures/hazards: Yes (fetanyl) Cognitive needs: No Hearing needs: No Vision needs: No Questionnaire Thrive Questionnaire Date Thrive assessed: 10/18/24 I am a: Patient What is your living situation today?: I have a steady place to live Within the past 12 months, did the food you bought not last and you didn't have the money to get more?: Sometimes True Within the past 12 months, did you worry whether your food would run out before you got money to buy more?: Sometimes True Do you have trouble paying for medicines?: No Do you have trouble getting transportation to medical appointments?: No Do you have trouble paying your heating and electricity bill?: No Do you have trouble taking care of your child, family member or friend?: No Do you have trouble with day-to-day activities such as bathing, preparing meals, shopping, managing finances, etc.?: No Are you currently unemployed and looking for a job?: No Are you interested in more education?: Yes Please select the resources that you would like help with: None Currently or been in a relationship where the following occur: No concerns reported THRIVE Score: 2 Physical exam (Primary Care) Vital Signs: Last Vital Signs Temp 97.9 F 11/06/24 11:48 Pulse 88 11/06/24 11:48 BP 118/70 11/06/24 11:48 Pulse Ox 97 11/06/24 11:48 Oxygen Delivery Method Room Air 11/06/24 11:48 BMI result Body Mass Index 31.5 Tobacco/Smoking Status: Tobacco use Status Tobacco use date assessed 11/06/24 11/06/24 11:52 Patient Tobacco Use Status Never used Tobacco 11/06/24 11:52 e-Cigarette/Vaping Use Never Used 11/06/24 11:52 Thrive Assessment: Date of Thrive Assessment Date Thrive assessed 10/18/24 11/06/24 11:52 Currently or been in a relationship where the following occur: No concerns reported Coding Level of Care Code Est Pt Level 4 (89235) Diagnoses Primary hypertension I10 Hypertension type: primary hypertension Dizziness R42 EDOUARD (obstructive sleep apnea) G47.33 Assessment & Plan Assessment & Plan (1) HTN (hypertension): Code(s): I10 - Essential (primary) hypertension Category: Medical Qualifiers: Hypertension type: primary hypertension Qualified Code(s): I10 - Essential (primary) hypertension (2) Dizziness: Code(s): R42 - Dizziness and giddiness Category: Medical (3) EDOUARD (obstructive sleep apnea): Code(s): G47.33 - Obstructive sleep apnea (adult) (pediatric) Category: Medical Plan HTN-blood pressure with improved control on medication He attributes lighteadedness, dizziness to work stress but he wants to go ahead with the [employer] assistant manager. Number provided EDOUARD-stable on cpap
[2024-11-06 11:48] VITALS: BP 118/70; PULSE 88; TEMP 36.6; O2SAT 97; BMI 31.5
== END 2024-11-06 12:11 | disposition home or self-care (01) ==
LOC: HO.HMCFM 11:42
PROVIDERS: PCP Internal Medicine; Visit Provider Internal Medicine
DX: I10 Essential (primary) hypertension (principal); R42 Dizziness and giddiness; G47.33 Obstructive sleep apnea (adult) (pediatric)

== ENCOUNTER → 2024-11-06 11:42 | Outpatient (BNVA) | payer OTHER, SELFPAY | PROVIDERS: PCP Internal Medicine; Visit Provider Internal Medicine ==

== ENCOUNTER 2025-04-12 10:53 | Outpatient (REF) | payer OTHER, SELFPAY ==
[2025-04-12 14:33] LABS: Hemoglobin A1C 94.2565 umol/L
[2025-04-12 14:58] LABS: Alanine Aminotransferase 93 U/L (0-40); Albumin Level 4.8 g/dL (3.5-5.0); Alkaline Phosphatase 42 U/L (39-117); Anion Gap 11 (12-20); Aspartate Amino Transferase 42 U/L (5-37); Blood Urea Nitrogen 18 mg/dL (9-16); Calcium 9.9 mg/dL (8.4-10.2); Carbon Dioxide 27 mmol/L (22-29); Chloride 107 mmol/L (96-108); Cholesterol 181 mg/dL (<200); Estimated Glomerular Filt Rate > 60; HDL Cholesterol 39 mg/dL (>40); Iron 122 mcg/dL (45-160); Percent Iron Saturation 39 % (15-50); Potassium 4.2 mmol/L (3.3-5.1); Sodium 141 mmol/L (135-145); Total Iron Binding Capacity 310 mcg/dL (228-428); Total Protein 7.4 g/dL (6.5-8.0); Triglycerides 49 mg/dL (<150); Unsaturated Iron Binding 188 ug/dL
[2025-04-12 15:04] LABS: Gamma Glutamyl Transpeptidase 17 U/L (11-51)
[2025-04-13 06:28] LABS: Lyme Abs Screen <0.90 index
[2025-04-13 08:27] LABS: HBsAGNum1 0.40 S/CO (0.00-0.99); Hepatitis B Surface Antigen Negative (Negative); ~HepC Num1 0.07 S/CO (0.00-0.79); ~Hepatitis C Antibody Nonreactive (Nonreactive)
[2025-04-19 21:03] LABS: Testosterone, Free 29.0 pg/mL (35.0-155.0)
== END 2025-04-12 10:54 | disposition home or self-care (01) ==
LOC: HO.WFDLDS 10:53
PROVIDERS: PCP Internal Medicine; Referring Provider Physician Assistant; Visit Provider Internal Medicine
DX: I10 Essential (primary) hypertension (principal); R94.5 Abnormal results of liver function studies; G47.33 Obstructive sleep apnea (adult) (pediatric); Q23.1 Congenital insufficiency of aortic valve; R35.89 Other polyuria; R42 Dizziness and giddiness; R53.83 Other fatigue; Z79.899 Other long term (current) drug therapy
CPT/HCPCS: 36415; 80048; 80061; 80076; 82977; 83036; 83540; 84402; 84403; 86617; 86618; 86803; 87340

== ENCOUNTER 2025-04-12 10:53 | Outpatient (AMB) | payer OTHER, SELFPAY ==
[2025-04-12 10:56] VITALS: BP 122/74; PULSE 73; RESP 14; O2SAT 97; BMI 30.5
--- NOTE | 2025-04-12 10:56 | MHC.PC.OV ---
Vital Signs 04/12/25 10:56 Height 5 ft 10.8 in Weight 217 lb 2 oz BMI 30.5 BP 122/74 Blood Pressure Location Rt brachial Position Sitting Respiration 14 Pulse 73 Pulse Source Pulse Oximeter Pulse Oximetry (%) 97 Oxygen Delivery Method Room Air Intake Visit Reasons: follow up Allergies No Known Allergies Allergy (Verified 11/06/24 11:47) Tobacco use date assessed: 04/12/25 Dental Screening Dental Screen Date: 11/06/24 HPI HPI Comments History of Present Illness Details The patient is a 33 year old male with a past medical history of hypertension, EDOUARD, bicuspid aortic valve, elevated LFTs presenting for follow up CV: Continues amlodipine. BP is well controlled. He still has some episodes of lightheadedness, off balance feeling. This is generally when he gets busy/called at work. 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 Bicuspid aortic valve-Previously following with cardiology. Echocardiogram was ordered at his last visit and reviewed today-there was no significant interval changes, no significant valve dysfunction. EDOUARD-On armodafinil. Follows with sleep medicine-pulmonology Dr Cisco Hager. He was having some palpitations with the medication so was switched to sunosi which was not as effective so he restarted the armodafinil. As long as he stays well hydrated he dose not get any palpitations GI: Elevated LFTS. Lost 7 pounds since last visit. Held off on ultrasound ROS see HPI PHYSICAL EXAM: GENERAL: Alert and oriented x 3. NAD EYES: EOMI. Anicteric. HENT: Moist mucous membranes. No scleral icterus. No cervical lymphadenopathy. LUNGS: Clear to auscultation bilaterally. CARDIOVASCULAR: Regular rate and rhythm. slight murmur. No JVD. ABDOMEN: Soft, non-tender +bs EXTREMITIES: No edema. Non-tender. SKIN: No rashes or lesions. Warm. NEUROLOGIC: No focal neurological deficits. CN II-XII grossly intact PSYCHIATRIC: Cooperative. Appropriate mood and affect [facility] Family History Father Substance use Social History Housing: House Alcohol intake: never Patient Tobacco Use Status: Never used Tobacco e-Cigarette/Vaping Use: Never Used Second Hand Smoke Exposure: Yes service: No Current occupational status: employed Current occupation: [employer] Current occupational exposures/hazards: Yes (fetanyl) Cognitive needs: No Hearing needs: No Vision needs: No Questionnaire Thrive Questionnaire Date Thrive assessed: 10/18/24 I am a: Patient What is your living situation today?: I have a steady place to live Within the past 12 months, did the food you bought not last and you didn't have the money to get more?: Sometimes True Within the past 12 months, did you worry whether your food would run out before you got money to buy more?: Sometimes True Do you have trouble paying for medicines?: No Do you have trouble getting transportation to medical appointments?: No Do you have trouble paying your heating and electricity bill?: No Do you have trouble taking care of your child, family member or friend?: No Do you have trouble with day-to-day activities such as bathing, preparing meals, shopping, managing finances, etc.?: No Are you currently unemployed and looking for a job?: No Are you interested in more education?: Yes Please select the resources that you would like help with: None Currently or been in a relationship where the following occur: No concerns reported THRIVE Score: 2 AUDIT C Alcohol Use Questionnaire (AUDIT-C) 1. How often do you have a drink containing alcohol?: Never 3. How often do you have six or more drinks on one occasion?: Never Total Score: 0 Physical exam (Primary Care) Vital Signs: Last Vital Signs Pulse 73 04/12/25 10:56 Resp 14 04/12/25 10:56 BP 122/74 04/12/25 10:56 Pulse Ox 97 04/12/25 10:56 Oxygen Delivery Method Room Air 04/12/25 10:56 BMI result Body Mass Index 30.5 Tobacco/Smoking Status: Tobacco use Status Tobacco use date assessed 04/12/25 04/12/25 11:00 Patient Tobacco Use Status Never used Tobacco 04/12/25 11:00 e-Cigarette/Vaping Use Never Used 04/12/25 11:00 Thrive Assessment: Date of Thrive Assessment Date Thrive assessed 10/18/24 04/12/25 11:00 Currently or been in a relationship where the following occur: No concerns reported Coding Level of Care Code Est Pt Level 4 (33003) Diagnoses Primary hypertension I10 Hypertension type: primary hypertension EDOUARD (obstructive sleep apnea) G47.33 Assessment & Plan Assessment & Plan (1) HTN (hypertension): Code(s): I10 - Essential (primary) hypertension Category: Medical Qualifiers: Hypertension type: primary hypertension Qualified Code(s): I10 - Essential (primary) hypertension (2) EDOUARD (obstructive sleep apnea): Code(s): G47.33 - Obstructive sleep apnea (adult) (pediatric) Category: Medical Plan 34 year old male presenting for follow up HTN-well controlled on current medications Elevated LFTs-recheck Labs ordered. Follow up 6 months bp Orders: Orders Basic Metabolic Panel Today G47.33 - Obstructive sleep apnea (adult) (pediatric), I10 - Essential (primary) hypertension, Q23.1 - Congenital insufficiency of aortic valve, R35.89 - Other polyuria, R42 - Dizziness and giddiness, R53.83 - Other fatigue Lyme IgG/IgM w/reflex to WB Today G47.33 - Obstructive sleep apnea (adult) (pediatric), I10 - Essential (primary) hypertension, Q23.1 - Congenital insufficiency of aortic valve, R35.89 - Other polyuria, R42 - Dizziness and giddiness, R53.83 - Other fatigue Lipid Panel Today G47.33 - Obstructive sleep apnea (adult) (pediatric), I10 - Essential (primary) hypertension, Q23.1 - Congenital insufficiency of aortic valve, R35.89 - Other polyuria, R42 - Dizziness and giddiness, R53.83 - Other fatigue Testosterone, Free/Total Today G47.33 - Obstructive sleep apnea (adult) (pediatric), I10 - Essential (primary) hypertension, Q23.1 - Congenital insufficiency of aortic valve, R35.89 - Other polyuria, R42 - Dizziness and giddiness, R53.83 - Other fatigue Hemoglobin A1c Today G47.33 - Obstructive sleep apnea (adult) (pediatric), I10 - Essential (primary) hypertension, Q23.1 - Congenital insufficiency of aortic valve, R35.89 - Other polyuria, R42 - Dizziness and giddiness, R53.83 - Other fatigue IRON PROFILE Today G47.33 - Obstructive sleep apnea (adult) (pediatric), I10 - Essential (primary) hypertension, Q23.1 - Congenital insufficiency of aortic valve, R35.89 - Other polyuria, R42 - Dizziness and giddiness, R53.83 - Other fatigue
== END 2025-04-12 11:15 | disposition home or self-care (01) ==
LOC: HO.HMCFM 10:54
PROVIDERS: PCP Internal Medicine; Visit Provider Internal Medicine
DX: I10 Essential (primary) hypertension (principal); G47.33 Obstructive sleep apnea (adult) (pediatric)

== ENCOUNTER 2025-05-20 13:27 | Outpatient (AMB) | payer OTHER, SELFPAY ==
--- NOTE | 2025-05-20 13:48 | MHC.PC.OV ---
Vital Signs 05/20/25 13:56 Height 5 ft 10.8 in Weight 217 lb 2 oz BMI 30.5 BP 126/84 Blood Pressure Location Rt brachial Position Sitting Respiration 14 Pulse 96 Pulse Source Pulse Oximeter Pulse Oximetry (%) 97 Oxygen Delivery Method Room Air Intake Visit Reasons: FMLA Intake Note: FMLA paperwork. Wantst to discuss getting on medicaton for ADHD Allergies No Known Allergies Allergy (Verified 05/20/25 13:55) Tobacco use date assessed: 05/20/25 Dental Screening Dental Screen Date: 11/06/24 HPI HPI Comments History of Present Illness Details The patient is a 33 year old male with a past medical history of hypertension, EDOUARD, bicuspid aortic valve, elevated LFTs presenting for anxiety, insomnia/FMLA discussed Patient has recently been found to be not himself at work. He says his firearm was taken from him recommending psych evaluation. Upcoming IOP planned. Not very specific about detals. He does endorse anxiety, stress, worsened sleep. He has trouble concentrating and so becomes obsessive about working/making sure that everything is done right. CV: Continues amlodipine. BP is well controlled. He still has some episodes of lightheadedness, off balance feeling. This is generally when he gets busy/called at work. 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 Bicuspid aortic valve-Previously following with cardiology. Echocardiogram was ordered at his last visit and reviewed today-there was no significant interval changes, no significant valve dysfunction. EDOUARD-On armodafinil. Follows with sleep medicine-pulmonology Dr Cisco Hager. He was having some palpitations with the medication so was switched to sunosi which was not as effective so he restarted the armodafinil. As long as he stays well hydrated he dose not get any palpitations GI: Elevated LFTS. ROS see HPI PHYSICAL EXAM: GENERAL: Alert and oriented x 3. NAD EYES: EOMI. Anicteric. HENT: Facial flusing, Moist mucous membranes. No scleral icterus. No cervical lymphadenopathy. LUNGS: Clear to auscultation bilaterally. CARDIOVASCULAR: Regular rate and rhythm. slight murmur. No JVD. ABDOMEN: Soft, non-tender +bs EXTREMITIES: No edema. Non-tender. SKIN: No rashes or lesions. Warm. NEUROLOGIC: No focal neurological deficits. CN II-XII grossly intact PSYCHIATRIC: Cooperative. Appropriate mood and affect [facility] Medical History (Updated 05/26/25 @ 21:33 by Rohini Sullivan MD) Pectoral muscle rupture ACL tear Bicuspid aortic valve Sleep apnea Hypertension Family History Father Substance use Social History Household Members: None Housing: House Alcohol intake: never Patient Tobacco Use Status: Never used Tobacco e-Cigarette/Vaping Use: Never Used Second Hand Smoke Exposure: Yes Do you have thoughts of harming others: None service: No Current occupational status: employed Current occupation: [employer] Current occupational exposures/hazards: Yes (fetanyl) Cognitive needs: No Hearing needs: No Vision needs: No Questionnaire PHQ-9 Over the last 2 weeks, how often have you been bothered by any of the following problems? 1. Little interest or pleasure in doing things: more than half the days 2. Feeling down, depressed, or hopeless: more than half the days 3. Trouble falling or staying asleep, or sleeping too much: nearly every day 4. Feeling tired or having little energy: several days 5. Poor appetite or overeating: more than half the days 6. Feeling bad about yourself - or that you are a failure or have let yourself or your family down: nearly every day 7. Trouble concentrating on things, such as reading the newspaper or watching television: nearly every day 8. Moving or speaking so slowly that other people could have noticed. Or the opposite - being so fidgety or restless that you have been moving around a lot more than usual: several days 9. Thoughts that you would be better off or of hurting yourself in some way: more than half the days Total score: 19 Depression Screening Interpretation: Positive Depression Screening Done: Yes 55777 - PHQ-9 Billing: Yes Source: Developed by Drs. Felix Bess, Sophia De La Rosa, Carlos Cortez and colleagues, with an educational india from [employer]. Thrive Questionnaire Date Thrive assessed: 10/18/24 I am a: Patient What is your living situation today?: I have a steady place to live Within the past 12 months, did the food you bought not last and you didn't have the money to get more?: Sometimes True Within the past 12 months, did you worry whether your food would run out before you got money to buy more?: Sometimes True Do you have trouble paying for medicines?: No Do you have trouble getting transportation to medical appointments?: No Do you have trouble paying your heating and electricity bill?: No Do you have trouble taking care of your child, family member or friend?: No Do you have trouble with day-to-day activities such as bathing, preparing meals, shopping, managing finances, etc.?: No Are you currently unemployed and looking for a job?: No Are you interested in more education?: Yes Currently or been in a relationship where the following occur: No concerns reported THRIVE Score: 2 JAZMYN-7 AMB Questionnaire JAZMYN-7 Date JAZMYN - 7 assessed: 05/20/25 Feeling nervous, anxious, or on edge: 3 = Nearly every day Not being able to stop or control worryin = Nearly every day Worrying too much about different things: 3 = Nearly every day Trouble relaxin = More than half the days Being so restless that it is hard to sit still: 3 = Nearly every day Becoming easily annoyed or irritable: 1 = Several days Feeling afraid as if something awful might happen: 3 = Nearly every day Total JAZMYN-7 score (0-4 normal; 5-9 mild; 10-14 moderate; 15-21 severe): 18 Source: Developed by Drs. Felix Bess, Sophia De La Rosa, Carlos Cortez and colleagues, with an educational india from [employer]. JAZMYN-7 Assessment Billing JAZMYN-7 Assessment Tool: JAZMYN-7 Assessment 52237 Physical exam (Primary Care) Vital Signs: Last Vital Signs Pulse 96 05/20/25 13:56 Resp 14 05/20/25 13:56 BP 126/84 05/20/25 13:56 Pulse Ox 97 05/20/25 13:56 Oxygen Delivery Method Room Air 05/20/25 13:56 BMI result Body Mass Index 30.5 Tobacco/Smoking Status: Tobacco use Status Tobacco use date assessed 05/20/25 05/20/25 14:00 Patient Tobacco Use Status Never used Tobacco 05/20/25 13:49 e-Cigarette/Vaping Use Never Used 05/20/25 13:49 PHQ-9: PHQ-9 Score PHQ-9: Total score 19 05/27/25 09:55 Depression Screening Interpretation: Positive Thrive Assessment: Date of Thrive Assessment Date Thrive assessed 10/18/24 05/20/25 13:49 Currently or been in a relationship where the following occur: No concerns reported Coding Level of Care Code Est Pt Level 4 (05246) Diagnoses PTSD (post-traumatic stress disorder) F43.10 Unspecified mood [affective] disorder F39 EDOUARD (obstructive sleep apnea) G47.33 Additional Codes JAZMYN-7 Assessment Billing - JAZMYN-7 Assessment Tool: JAZMYN-7 Assessment 79407 ([id number]) PHQ-9 - 71513 - PHQ-9 Billing: Yes ([id number]) Assessment & Plan Assessment & Plan (1) PTSD (post-traumatic stress disorder): Code(s): F43.10 - Post-traumatic stress disorder, unspecified Category: Medical (2) Unspecified mood [affective] disorder: Code(s): F39 - Unspecified mood [affective] disorder Category: Medical (3) EDOUARD (obstructive sleep apnea): Code(s): G47.33 - Obstructive sleep apnea (adult) (pediatric) Category: Medical Plan PTSD/anxiety-FMLA filled. IOP has already been arranged He can have a trial of adderal and stop sunori though I expect further medication changes from psychiatry. He will have close follow up Blood pressure is adequately controlled Medications: New dextroamphetamine-amphetamine 15 mg (Adderall) administer doses at least 4-6 hours apart; Partial Fill upon patient request. 15 mg PO BID 60 tabs 0RF
[2025-05-20 13:56] VITALS: BP 126/84; PULSE 96; RESP 14; O2SAT 97; BMI 30.5
--- OUTSIDE RECORDS SUMMARY | 2025-05-20 16:52 | XMS_ITS | Clinical Summary ---
Author Organization [facility] Address [address] [place] [address] Care Team Providers Care Founder And President Name Role Phone Pcp, No MD Primary [...] 87 07/14/2020 4:40 PM EST Temperature 36.2 C (97.1 F) 08/18/2021 4:17 PM EDT Respiratory Rate 16 07/14/2020 4:11 PM EST [...] of 3 - 19+ 3-dose series) 2010 HPV Vaccines (1 - 3-dose SCD M series) 2018 COVID-19 Vaccine (2024-2 6 season) 2025 Influenza Vaccine (#1) 2025 Zoster Vaccines (1 of 2) 2041 Hepatitis A Vaccines Aged Out No long er eligible based on patient's age to complete this topic MMR Vaccines Aged Out No longer eligi ble based on patient's age to complete this topic Meningococcal Vaccine Aged Out No frankie ania eligible based on patient's age to complete this topic Pneumococcal Vaccine: At-Ris k and Pediatric Patients (0 to 49 Years) Aged Out No lo nger eligible based on patient's age to complete this topic Medical Devices Implanted Type Area Mailroom Courier Device Identifier Shelf Expiration Date Model / Serial / Lot 18cm X 100mm Fascia Violeta, Large, Soft Tissue, Frozen - [id number] Implanted:Qty: 1 on 06/09/2020 by Adrian Eugene MD PhD at [facility] Soft Tissue Right: Chest [employer] 07/01/2024 [id number] / / [id number] 12mm Bicepsbutton - [id number] Implanted:Qty: 2 on 06/09/2020 by Adrian Eugene MD PhD at [facility] Surgical Fixation Device Right: Chest [employer] 01/27/2025 AR-2261 / / [id number] 12mm Bicepsbutton - [id number] Implanted:Qty: 1 on 06/09/2020 by Adrian Eugene MD PhD at [facility] Surgical Fixation Device Right: Chest [employer] 12/27/2024 AR-2261 / / [id number] 12mm Bicepsbutton - [id number] Implanted:Qty: 1 on 07/14/2020 by Adrian Eugene MD PhD at [facility] Surgical Fixation Device [employer] 01/27/2025 AR-2261 / / [id number] 12mm Bicepsbutton - [id number] Implanted:Qty: 2 on 07/14/2020 by Adrian Eugene MD PhD at [facility] Surgical Fixation Device [employer] 02/26/2025 AR-2261 / / [id number] Insurance [employer] Advance Directives For more information, please contact: [phone] Documents on File Type Date Recorded Patient Warp Tester Expl anation Advance Directives 07/16/2020 10:31 AM Care Teams Founder And President Relationship Specialty Start Date End Date Lyudmila Garcia MD [address] [place] [address] PCP - General Internal Medicine 06/04/20
--- OUTSIDE RECORDS SUMMARY | 2025-05-20 16:53 | XMS_ITS | Encounter Summary ---
Author Organization [facility] Address [address] [place] [address] Care Team Providers Care Director Banking Name Role Phone Louise Velarde APRN Primary Care Provider Un available Encounter Details Date Type Department Care Team (Late st Contact Info) Description 02/21/2023 Scanned Document [facility] Department of Internal Medicine [address] [place] [id number] Nika Lazaro APRN [address] [place] [address] Social History Tobacco Use Types Packs/Day Years [...] on filedocumented in this encounter Care Teams Director Banking Relationship Specialty Start Date End Date Louise Velarde APRN PCP - General Internal Medicine 02/21/23 10/02/23 documented as of this encounter
--- OUTSIDE RECORDS SUMMARY | 2025-05-20 16:53 | XMS_ITS | Clinical Summary ---
Author Organization [facility] Address [address] [place] [address] Care Team Providers Care Louver Door Assembler Name Role Phone Unavailable Primary Care Provider [...] series) 2010 Pap Smear (Ages 21-65) 2012 Influenza Vaccine 12/28/2024 03/08/2008, , 03/23/2006, Additional history exists COVID-19 Vaccine (2024- season) 2025 DTaP/Tdap/Td Vaccines (2 - Td or Tdap) 02/21/2033 02/21/2023 HPV Vaccines (No Doses Required) Completed Pneumococcal Vaccine: Pediatric (0-5 Years) and At-Risk Patients (6 to 49 Years) Aged Out No longer eligible based on patient's age to complete this topic Insurance [employer]
--- OUTSIDE RECORDS SUMMARY | 2025-05-20 16:53 | XMS_ITS | Clinical Summary ---
Author Organization [facility] Address [address] [place] [address] Care Team Providers Care Bundler Name Role Phone IngridGaby gao Primary Care Provider Unavailabl e Medications Armodafinil [...] Abnormal electrocardiogram 03/21/2018 Overview (2023): Impression - [id number]: asymptomatic currently. referral to cardiology, will likely [...] 64 03/21/2018 2:22 PM EDT Temperature 36.8 C (98.2 F) 03/21/2018 2:22 PM EDT Respiratory Rate 16 03/21/2018 2:22 PM EDT [...] 3-dose series) 2010 COVID-19 Vaccine ( - 2024-2 6 season) 2025 Influenza (#1) 2025 Zoster (Shingrix) (1 of 2) 2041 HPV Vaccine (No Doses Required) Completed Hep A Aged Out No longer eligi ble based on patient's age to complete this topic Hib Aged Out No longer eligi ble based on patient's age to complete this topic Meningococcal ACWY Aged Out No longer eligible based on patient's age to complete this topic Pneumococcal Aged Out No longer eligi ble based on patient's age to complete this topic Care Teams Bundler Relationship Specialty Start Date End Date Gaby Tong PCP - General 01/03/23
--- OUTSIDE RECORDS SUMMARY | 2025-05-20 16:53 | XMS_ITS | Encounter Summary ---
Author Organization [facility] Address [address] [place] [address] Care Team Providers Care Railroad Brakeman Name Role Phone Louise Velarde APRN Primary Care Provider Un available Encounter Details Date Type Department Care Team (Late st Contact Info) Description 02/23/2023 Scanned Document [facility] Department of Pediatrics [address] [phone] Louise Velarde APRN Social History Tobacco Use Types Packs/Day Years [...] on filedocumented in this encounter Care Teams Railroad Brakeman Relationship Specialty Start Date End Date Louise Velarde APRN PCP - General Internal Medicine 02/21/23 10/02/23 documented as of this encounter
--- OUTSIDE RECORDS SUMMARY | 2025-05-20 16:53 | XMS_ITS | Clinical Summary ---
Author Organization [facility] Address [address] [place] [address] Phone Care Team Providers Care Technical Analyst Name Role Phone Francesco Mensah MD Primary Care Provider [phone] Allergies No known active allergies Medications armodafiniL (NUVIGIL) 150 mg tablet Take 1 tablet (150 mg total) by mouth 1 (one) time each day. Max Daily Amount: 150 mg 04/18/2023 Active Sunosi 75 mg tablet TAKE 1 TABLET BY MOUTH EVERY DAY 30 tablet 3 12/05/2024 Active Active Problems Problem Noted Date Diagnosed [...] Health Maintenance Due Date Last Done Comments Drug Screen 1991 Non-Opioid Controlled Substa nce Agreement 1991 DTaP,Tdap,and Td Vaccines (1 - Tdap) 2010 Hepatitis B Vaccines (1 of 3 - 19+ 3-dose series) 2010 HPV Vaccines (1 - 3-dose SCD M series) 2018 HIV Screening 05/02/2022 Hepatitis C Screening 05/02/2022 Social Influencers of Health Screening 05/02/2022 Depression Screening 05/30/2024 COVID-19 Vaccine (1 - 2024-2 6 season) 2025 Influenza Vaccine (#1) 2025 RSV Immunization Adult Patie nts (1 - 1-dose 75+ series) 2066 HIB Vaccines Aged Out No longer eligi [...] age to complete this topic Care Teams Technical Analyst Relationship Specialty Start Date End Date Francesco Mensah MD [address] [facility] [address] [place] [address] PCP - General 03/11/22
--- OUTSIDE RECORDS SUMMARY | 2025-05-20 16:53 | XMS_ITS | Clinical Summary ---
Author Organization [facility] Prior to 10/27/24 Address [address] [place] [address] Care Team Providers Care Cattle Sorter Name Role Phone Francesco Mensah MD Primary Care Provider [phone] Allergies No known active allergies Medications Medication [...] 108 02/23/2023 12:41 PM EDT Temperature 36.4 C (97.5 F) 03/12/2022 8:09 AM EDT Respiratory Rate 16 02/23/2023 12:41 PM EDT [...] BMI Counseling 08/25/2023 08/24/2022 Influenza Vaccine (#1) 2025 DTap / Tdap / Td (2 - Td or Tdap) 02/21/2033 023 Pneumococcal Vaccine Aged Out No long er eligible based on patient's age to complete this topic RSV Ped < 20 months Aged Out No longe r eligible based on patient's age to complete this topic Advance Directives For more information, please contact: [phone] Latest Code Status on File Code Status Date Activated Date Inactivated Comments Full Code 03/11/2022 4:40 PM 03/12/2022 8:27 PM Thi s code status was ascertained in the following way: TBD . Care Teams Cattle Sorter Relationship Specialty Start Date End Date Francesco Mensah MD [address] [place] [address] PCP - General Cardiovascular Disease 03/11/22
== END 2025-05-20 14:33 | disposition home or self-care (01) ==
LOC: HO.HMCFM 13:28
PROVIDERS: PCP Internal Medicine; Visit Provider Internal Medicine
DX: F43.10 Post-traumatic stress disorder, unspecified (principal); F39 Unspecified mood [affective] disorder; G47.33 Obstructive sleep apnea (adult) (pediatric)

== ENCOUNTER → 2025-05-20 13:27 | Outpatient (BNVA) | payer OTHER, SELFPAY | PROVIDERS: PCP Internal Medicine; Visit Provider Internal Medicine | DX: I10 Essential (primary) hypertension (principal); R42 Dizziness and giddiness; G47.33 Obstructive sleep apnea (adult) (pediatric); R79.89 Other specified abnormal findings of blood chemistry; F43.10 Post-traumatic stress disorder, unspecified | CPT/HCPCS: 96127 ==

== ENCOUNTER → 2025-05-24 11:00 | Outpatient (BNV) | payer OTHER, SELFPAY | PROVIDERS: Visit Provider Psychiatry & Neurology Psychiatry | DX: F43.10 Post-traumatic stress disorder, unspecified (principal); F39 Unspecified mood [affective] disorder; F90.9 Attention-deficit hyperactivity disorder, unspecified type | CPT/HCPCS: 90792 ==